=== PATIENT | male | born 1995 | race Hispanic/Latino ===

== ENCOUNTER 2017-05-19 10:07 | Day surgery (SDC) | payer OTHER ==
[~2017-05-19] VITALS: Ht 170.2 cm; Wt 67.6 kg
[~2017-05-19 10:07] MED LIST: CETI10TA PO; LIDOCAINE 2% INJ 100 MG/5 ML SDV (FOR ANES.) As Ordered ONE; NS 1,000 ML IV ONE; OMEP40CA2 PO; PROPOFOL 200 MG/20 ML VIAL As Ordered ONE; RANI150T PO; no home meds
[2017-05-19] MEDS ORDERED: fentaNYL 100 MCG/2 ML INJECTION (J3010) As Ordered ONE (12:33)
--- NOTE | 2017-05-19 12:49 | ROOR ---
Patient Name: Jose R Tanner Procedure Date: 05/19/2017 12:31 PM Date of : 1995 Age: 21 Room: [facility] Gender: Male Note Status: Finalized Procedure: Upper GI endoscopy Indications: Hematemesis, Eructation, Vomiting Providers: Quoc GALINDO MD Referring MD: DELMY BROCK MD Requesting Provider: Medicines: Monitored Anesthesia Care Complications: No immediate complications. Procedure: Pre-Anesthesia Assessment: - The heart rate, respiratory rate, oxygen saturations, blood pressure, adequacy of pulmonary ventilation, and response to care were monitored throughout the procedure. The Endoscope was introduced through the mouth, and advanced to the second part of duodenum. The upper GI endoscopy was accomplished without difficulty. The patient tolerated the procedure well. Findings: The Z-line was variable and was found 38 cm from the incisors. This was biopsied with a cold forceps for histology. The examined esophagus was normal. The entire examined stomach was normal. Biopsies were taken with a cold forceps for Helicobacter pylori testing. The examined duodenum was normal. Impression: - Z-line variable, 38 cm from the incisors. Biopsied. - Normal esophagus. - Normal stomach. Biopsied. - Normal examined duodenum. Recommendation: - Use Prilosec (omeprazole) 20 mg PO BID. - (the script was sent to your pharmacy on file) - Stop Omeprazole 40 mg ONCE in evening and Start omeprazole 20 mg TWICE a day. Quoc Galindo MD Quoc GALINDO MD 05/19/2017 12:49:10 PM This report has been signed electronically. Number of Addenda: 0 Note Initiated On: 05/19/2017 12:31 PM Estimated Blood Loss: Estimated blood loss: none.
[2017-05-19 13:10] VITALS: BP 122/73
== END 2017-05-19 13:17 | disposition home or self-care (01) ==
LOC: M OPP 10:07
PROVIDERS: ATTEND Internal Medicine Gastroenterology
DX: K92.0 Hematemesis (principal); R14.2 Eructation; K22.8 Other specified diseases of esophagus; R12 Heartburn; K21.9 Gastro-esophageal reflux disease without esophagitis; J45.909 Unspecified asthma, uncomplicated; Z91.010 Allergy to peanuts; Z79.899 Other long term (current) drug therapy
CPT/HCPCS: 43239; 88305; J3010